=== PATIENT | female | born 2005 | race Two or more races ===

== ENCOUNTER 2024-08-25 15:55 | Outpatient (CLI) | payer OTHER | END 2024-08-25 16:05 | disposition home or self-care (01) | LOC: PRENATAL 15:55 | PROVIDERS: ATTEND Obstetrics & Gynecology Maternal & Fetal Medicine | DX: O44.00 Complete placenta previa NOS or without hemorrhage, unspecified trimester (principal); Z3A.23 23 weeks gestation of pregnancy ==

== ENCOUNTER → 2024-10-29 15:16 | Outpatient (CLI) | payer OTHER | END | disposition home or self-care (01) | LOC: PRENATAL 15:16 | PROVIDERS: ATTEND Obstetrics & Gynecology Maternal & Fetal Medicine | DX: O26.849 Uterine size-date discrepancy, unspecified trimester (principal); O36.8199 Decreased fetal movements, unspecified trimester, other fetus; Z3A.32 32 weeks gestation of pregnancy ==